=== PATIENT | male | born 1990 | race African-American/Black ===

== ENCOUNTER 2017-07-05 16:01 | Emergency (ER) | payer SELFPAY ==
[2017-07-05] MEDS ORDERED: Dexamethasone 4 mg/ml Vial ONE (16:39)
== END 2017-07-05 16:42 | disposition home or self-care (01) ==
LOC: ERS 16:01
DX: J02.9 Acute pharyngitis, unspecified (principal); Z71.6 Tobacco abuse counseling
CPT/HCPCS: 99406; J1100

== ENCOUNTER 2021-05-23 23:57 | Emergency (ER) | payer SELFPAY | END 2021-05-24 02:28 | disposition home or self-care (01) | LOC: ERS 23:57 | DX: I82.402 Acute embolism and thrombosis of unspecified deep veins of left lower extremity (principal); F17.200 Nicotine dependence, unspecified, uncomplicated ==

== ENCOUNTER 2022-04-30 21:37 | Emergency (ER) | payer OTHER ==
[2022-04-30] MEDS ORDERED: Warfarin Sodium 5 MG TAB PO SCH (22:00)
== END 2022-04-30 23:55 ==
LOC: ERS 21:37
DX: I82.402 Acute embolism and thrombosis of unspecified deep veins of left lower extremity (principal); M25.562 Pain in left knee; Z79.01 Long term (current) use of anticoagulants